=== PATIENT | female | born 1965 | race Caucasian/White ===

== ENCOUNTER 2016-11-09 22:34 | Emergency (ER) ==
[2016-11-09 22:46] VITALS: BP 131/70
== END 2016-11-09 23:30 | disposition left against medical advice (07) ==
LOC: ER 22:34
DX: Z53.21 Procedure and treatment not carried out due to patient leaving prior to being seen by health care provider (principal)

== ENCOUNTER 2016-11-10 18:51 | Emergency (ER) | payer OTHER, MEDICAID ==
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
[2016-11-10] MEDS ORDERED: HYDROCODONE/ACETAMINOPHEN 5-325 MG 6 TAB/DSPK PO PRN (20:31)
[2016-11-10] MEDS ORDERED: HYDROCODONE/ACETAMINOPHEN 5-325 MG TABLET PO ONE (20:31)
[2016-11-10 21:03] VITALS: BP 131/97
== END 2016-11-10 21:01 | disposition home or self-care (01) ==
LOC: ER 18:51
DX: S46.912A Strain of unspecified muscle, fascia and tendon at shoulder and upper arm level, left arm, initial encounter (principal); S20.219A Contusion of unspecified front wall of thorax, initial encounter; V49.50XA Passenger injured in collision with unspecified motor vehicles in traffic accident, initial encounter; M25.512 Pain in left shoulder; M25.562 Pain in left knee; M79.674 Pain in right toe(s); M79.675 Pain in left toe(s); F17.200 Nicotine dependence, unspecified, uncomplicated
CPT/HCPCS: 99284; 73630; 73562; 73660; L1830